=== PATIENT | female | born 1990 | race Caucasian/White ===

== ENCOUNTER → 2017-02-07 | Outpatient (REF) | payer BC ==
[~2017-02-07] MED LIST: IBUP600T26 PO; MAGN30TA2 PO; POTA-77 PO; TYLE325T5 PO; [UNRECOGNIZED DRUG - CODE] PO
== END ==
LOC: M LAB REF 16:59
PROVIDERS: ATTEND Advanced Practice Midwife
DX: Z12.4 Encounter for screening for malignant neoplasm of cervix (principal)

== ENCOUNTER → 2017-04-29 | Outpatient (REF) | payer BC | LOC: M SFHCLERA 16:03 | DX: J02.9 Acute pharyngitis, unspecified (principal) ==

== ENCOUNTER → 2018-05-17 | Outpatient (CLI) | payer BC ==
--- NOTE | 2018-05-17 14:00 | REP ---
CHEST PA/LATERAL: 05/17/2018. COMPARISON: 10/28/2008, CT chest 09/18/2006. CLINICAL HISTORY: Cough. She has a history of pectus excavatum. FINDINGS: The two views again show two sternotomy wires in the mid lower sternum. There are no other surgical findings. Degree of pectus is still seen. There is no pleural effusion or acute infiltrate. Crowding of markings in the right medial base is due to the pectus excavatum and is a normal finding in that clinical setting, not an infiltrate. It is unchanged from the study 10 years ago. There is no effusion or new parenchymal lung findings. No pleural thickening or nodularity on the frontal or lateral views. Heart is not enlarged. The aorta is normal. Airway is intact. Bony thoracic spine without compression deformity. Ribs without acute bony finding. IMPRESSION: 1. Pectus excavatum status post some surgical repair with two cerclage wires seen in the sternum in its mid lower portion. 2. Typical pattern of increased markings in the infrahilar region on the right in patients with pectus is noted in this study. No dense consolidation or pleural effusion. 3. Heart not enlarged. No vascular redistribution. Electronically Signed by Kris Ulloa MD 05/17/2018 07:08 P
== END ==
LOC: M WUC 12:06
PROVIDERS: ATTEND Physician Assistant
DX: R05 Cough (principal)

== ENCOUNTER → 2019-04-29 | Outpatient (REF) | payer BC | LOC: M LAB REF 15:52 | PROVIDERS: ATTEND Physician Assistant | DX: J02.9 Acute pharyngitis, unspecified (principal) ==

== ENCOUNTER → 2019-06-04 | Outpatient (REF) | payer BC | LOC: M SFHCWAGY 09:44 | PROVIDERS: ATTEND Advanced Practice Midwife | DX: Z12.4 Encounter for screening for malignant neoplasm of cervix (principal) ==

== ENCOUNTER → 2019-06-10 | Outpatient (CLI) | payer BC ==
--- NOTE | 2019-06-10 15:30 | REP ---
Left hip two-view : There is no fracture or dislocation. Mineralization and joint spaces are normal. There are no calcifications or foreign bodies. Impression: Negative left hip . Electronically Signed by Inderjit Hatfield MD 06/10/2019 03:21 P
== END ==
LOC: M WUC 10:26
PROVIDERS: ATTEND Physician Assistant
DX: M25.552 Pain in left hip (principal)

== ENCOUNTER → 2019-06-10 | Outpatient (REF) | payer BC ==
[2019-06-10 17:43] LABS: BLOOD UREA NITROGEN 10 MG/DL (7-18); C REACTIVE PROTEIN QUANTITATIV 5.18 MG/DL (0.00-0.30); GLOMERULAR FILTRATION RATE > 60.0 (>60)
[2019-06-10 17:58] LABS: BASO % 0.3 % (0.0-1.0); EOS # 0.1 10^3/uL (0.0-0.5); EOS % 0.9 % (0.0-3.0); HEMATOCRIT 36.9 % (36.0-47.0); HEMOGLOBIN 12.4 g/dl (12.0-15.5); LYMPH # 3.8 10^3/uL (1.5-5.0); LYMPH % 32.2 % (24.0-44.0); MEAN CORPUSCULAR HEMOGLOBIN 28.6 pg (27.0-33.0); MEAN CORPUSCULAR HGB CONC 33.6 g/dl (32.0-36.5); MONO # 0.8 10^3/uL (0.0-0.8); MONO % 6.8 % (0.0-5.0); NEUTROPHILS # 6.9 10^3/uL (1.5-8.5); NEUTROPHILS % 59.4 % (36.0-66.0); PLATELET COUNT, AUTOMATED 289 10^3/uL (150-450); RED BLOOD COUNT 4.34 10^6/uL (4.00-5.40); WHITE BLOOD COUNT 11.7 10^3/uL (4.0-10.0)
[2019-06-10 19:46] LABS: ERYTHROCYTE SEDIMENTATION RATE 49 mm/hr (0-20)
[2019-06-13 00:08] LABS: Lyme Disease IgG/IgM Antibodie <0.91 ISR (0.00-0.90); Lyme Disease IgM Ab Quantitati <0.80 index (0.00-0.79)
== END ==
LOC: M LABDRAW1 14:38
PROVIDERS: ATTEND Physician Assistant Medical
DX: M25.552 Pain in left hip (principal)

== ENCOUNTER → 2020-08-07 | Outpatient (REF) | payer BC | LOC: M SFHCWAGY 19:17 | PROVIDERS: ATTEND Advanced Practice Midwife | DX: Z12.4 Encounter for screening for malignant neoplasm of cervix (principal) ==

== ENCOUNTER → 2021-04-18 | Outpatient (REF) | payer BC ==
[2021-04-18 15:58] LABS: C REACTIVE PROTEIN QUANTITATIV 3.03 MG/DL (0.00-0.30); RHEUMATOID FACTOR QUANT < 10.0 IU/ML (<15.0); URIC ACID 4.4 MG/DL (2.6-6.0)
[2021-04-19 23:07] LABS: ANTINUCLEAR ANTIBODIES DIRECT Negative (Negative); CYCLIC CITRULLINATED PEPTIDE 5 units (0-19)
== END ==
LOC: M LAB REF 12:58
PROVIDERS: ATTEND Internal Medicine
DX: M13.80 Other specified arthritis, unspecified site (principal)

== ENCOUNTER → 2021-05-01 | Outpatient (REF) | payer BC | LOC: M LAB REF 11:33 | PROVIDERS: ATTEND Internal Medicine | DX: M13.80 Other specified arthritis, unspecified site (principal) ==

== ENCOUNTER → 2022-04-10 | Outpatient (REF) | payer BC ==
[2022-04-10 17:11] LABS: CRYSTALS, BODY FLUID NONE SEEN (NONE SEEN); SOURCE, BODY FLUID RT KNEE; SOURCE, BODY FLUID CRYSTALS RT KNEE; SYNOVIAL FLUID COLOR YELLOW (COLORLESS)
== END ==
LOC: M LAB REF 16:08
PROVIDERS: ATTEND Internal Medicine
DX: M25.561 Pain in right knee (principal); M13.161 Monoarthritis, not elsewhere classified, right knee

== ENCOUNTER → 2022-05-10 | Outpatient (CLI) | payer BC | LOC: M PLAIMG 07:29 | PROVIDERS: ATTEND Internal Medicine | DX: M94.261 Chondromalacia, right knee (principal) ==

== ENCOUNTER → 2022-07-22 | Outpatient (REF) | payer BC | LOC: M SFHCWAGY 18:01 | PROVIDERS: ATTEND Advanced Practice Midwife | DX: Z12.4 Encounter for screening for malignant neoplasm of cervix (principal); R87.610 Atypical squamous cells of undetermined significance on cytologic smear of cervix (ASC-US) ==

== ENCOUNTER → 2022-08-13 | Outpatient (REF) | payer BC | LOC: M SFHCWAGY 10:13 | PROVIDERS: ATTEND Obstetrics & Gynecology | DX: R87.810 Cervical high risk human papillomavirus (HPV) DNA test positive (principal) ==

== ENCOUNTER → 2023-07-28 | Outpatient (REF) | payer BC | LOC: M SFHCWAGY 17:46 | PROVIDERS: ATTEND Advanced Practice Midwife | DX: Z12.4 Encounter for screening for malignant neoplasm of cervix (principal) ==

== ENCOUNTER → 2024-01-28 | Outpatient (REF) | payer BC ==
[2024-01-28 18:59] LABS: LYMPHOCYTES 12 % (16-44); MONOCYTES 4 % (0-5); NEUTROPHILS 84 % (28-66); PLATELET ESTIMATE NORMAL (NORMAL)
[2024-01-28 19:00] LABS: ANISOCYTOSIS 1+
== END ==
LOC: M LAB REF 16:51
PROVIDERS: ATTEND Internal Medicine
DX: D72.829 Elevated white blood cell count, unspecified (principal)

== ENCOUNTER → 2024-03-01 | Outpatient (REF) | payer BC | LOC: M LAB REF 19:54 | PROVIDERS: ATTEND Nurse Practitioner Family | DX: R05.9 Cough, unspecified (principal) ==

== ENCOUNTER → 2024-03-01 | Outpatient (CLI) | payer BC | LOC: M WUC 15:28 | PROVIDERS: ATTEND Nurse Practitioner Family | DX: R05.9 Cough, unspecified (principal) ==

== ENCOUNTER → 2024-04-08 | Outpatient (CLI) | payer BC | LOC: M WUC 10:32 | PROVIDERS: ATTEND Student in an Organized Health Care Education/Training Program | DX: S29.011D Strain of muscle and tendon of front wall of thorax, subsequent encounter (principal) ==

== ENCOUNTER → 2024-05-27 | Outpatient (CLI) | payer BC | LOC: M RAD 12:02 | PROVIDERS: ATTEND Internal Medicine Nephrology | DX: E87.6 Hypokalemia (principal) ==

== ENCOUNTER → 2024-06-01 | Outpatient (REF) | payer BC | LOC: M LAB REF 17:13 | PROVIDERS: ATTEND Internal Medicine Nephrology | DX: E87.6 Hypokalemia (principal) ==

== ENCOUNTER → 2024-07-29 | Outpatient (CLI) | payer BC | LOC: M CARPUL 14:35 | PROVIDERS: ATTEND Nurse Practitioner Adult Health | DX: R05.9 Cough, unspecified (principal) ==

== ENCOUNTER → 2024-08-02 | Outpatient (CLI) | payer BC | LOC: M PLAIMG 13:01 | PROVIDERS: ATTEND Nurse Practitioner Adult Health | DX: R05.9 Cough, unspecified (principal) ==

== ENCOUNTER → 2024-08-16 | Outpatient (CLI) | payer BC | LOC: M WUC 15:34 | PROVIDERS: ATTEND Nurse Practitioner Family | DX: M25.562 Pain in left knee (principal); M25.462 Effusion, left knee ==

== ENCOUNTER → 2024-10-08 | Outpatient (REF) | payer BC ==
[~2024-10-08] MED LIST changes: +ACET-683 PO; +AMIL5TAB4 PO; +MAGN400T35 PO; +POTA1TAB23 PO; +PRED20TA PO; +SERT50TA29 PO; +SPIR50TA4 PO; +SPRI28TA PO
[2024-10-12 14:02] LABS: HPV APTIMA Detected (Not Detected)
== END ==
LOC: M SFHCWAGY 17:28
PROVIDERS: ATTEND Advanced Practice Midwife
DX: Z01.419 Encounter for gynecological examination (general) (routine) without abnormal findings (principal); R87.618 Other abnormal cytological findings on specimens from cervix uteri; Z12.39 Encounter for other screening for malignant neoplasm of breast; Z91.010 Allergy to peanuts; Z88.1 Allergy status to other antibiotic agents; Z79.899 Other long term (current) drug therapy

== ENCOUNTER → 2024-10-13 | Outpatient (CLI) | payer BC | LOC: M WUC 14:04 | PROVIDERS: ATTEND Internal Medicine | DX: M13.162 Monoarthritis, not elsewhere classified, left knee (principal); M25.562 Pain in left knee; M25.462 Effusion, left knee ==

== ENCOUNTER → 2024-10-14 | Outpatient (CLI) | payer BC | LOC: M WHC 13:43 | PROVIDERS: ATTEND Internal Medicine | DX: M79.605 Pain in left leg (principal); M79.89 Other specified soft tissue disorders ==

== ENCOUNTER → 2025-01-17 | Outpatient (REF) | payer BC ==
[~2025-01-17] MED LIST changes: +NAPR-837 PO
[2025-01-17 18:16] LABS: BASO # 0.0 10^3/uL (0.0-0.2); BASO % 0.3 % (0.0-1.0); EOS # 0.1 10^3/uL (0.0-0.5); EOS % 1.0 % (0.0-3.0); LYMPH # 3.9 10^3/uL (1.5-5.0); LYMPH % 30.8 % (24.0-44.0); MONO # 0.6 10^3/uL (0.0-0.8); MONO % 4.9 % (2.0-8.0); NEUTROPHILS # 7.8 10^3/uL (1.5-8.5); NEUTROPHILS % 62.3 % (36.0-66.0); PLATELET COUNT, AUTOMATED 340 10^3/uL (150-450)
[2025-01-17 18:19] LABS: ALT/SGPT 49 U/L (7.0-40); AST/SGOT 38 U/L (<34); CALCIUM LEVEL 9.1 MG/DL (8.5-10.1); CARBON DIOXIDE LEVEL 31 MMOL/L (20-31); CHLORIDE LEVEL 97 MMOL/L (98-107); CREATININE FOR GFR 0.68 MG/DL (0.55-1.30); GLOMERULAR FILTRATION RATE > 90.0 (>60); MAGNESIUM LEVEL 1.1 MG/DL (1.8-2.4); POTASSIUM SERUM 3.1 MMOL/L (3.5-5.1); SODIUM LEVEL 141 MMOL/L (136-145)
[2025-01-17 19:21] LABS: ESTIMATED AVERAGE GLUCOSE 114.0 MG/DL (60-110)
== END ==
LOC: M LAB REF 17:18
PROVIDERS: ATTEND Internal Medicine
DX: M06.4 Inflammatory polyarthropathy (principal); R73.09 Other abnormal glucose; E83.42 Hypomagnesemia; E87.6 Hypokalemia; F41.1 Generalized anxiety disorder

== ENCOUNTER 2025-01-18 21:54 | Emergency (ER) | payer BC ==
[~2025-01-18] VITALS: Ht 170.2 cm; Wt 79.5 kg
[~2025-01-18 21:54] MED LIST changes: -NAPR-837 PO
[2025-01-18 22:34] LABS: BASO # 0.1 10^3/uL (0.0-0.2); BASO % 0.6 % (0.0-1.0); EOS # 0.2 10^3/uL (0.0-0.5); EOS % 1.3 % (0.0-3.0); LYMPH # 5.6 10^3/uL (1.5-5.0); LYMPH % 38.9 % (24.0-44.0); MONO # 0.7 10^3/uL (0.0-0.8); MONO % 5.0 % (2.0-8.0); NEUTROPHILS # 7.7 10^3/uL (1.5-8.5); NEUTROPHILS % 53.3 % (36.0-66.0); PLATELET COUNT, AUTOMATED 351 10^3/uL (150-450)
[2025-01-18 23:06] LABS: CK-MB VALUE MASS 1.4 NG/ML (<3.6)
[2025-01-18 23:09] LABS: CALCIUM LEVEL 9.5 MG/DL (8.5-10.1); CARBON DIOXIDE LEVEL 29 MMOL/L (20-31); CHLORIDE LEVEL 96 MMOL/L (98-107); CPK CREATINE PHOSPHOKINASE 117 U/L (34-145); CREATININE FOR GFR 0.77 MG/DL (0.55-1.30); GLOMERULAR FILTRATION RATE > 90.0 (>60); MAGNESIUM LEVEL 1.5 MG/DL (1.8-2.4); MB/CK RELATIVE INDEX 1.19 (< OR =4); POTASSIUM SERUM 3.2 MMOL/L (3.5-5.1); SODIUM LEVEL 139 MMOL/L (136-145)
[2025-01-18 23:14] LABS: HCG, SERUM QUALITATIVE NEGATIVE (NEGATIVE)
[2025-01-19] MEDS ORDERED: ISOVUE-370 76% 100 ML VIAL As Ordered ONE (01:15)
[2025-01-19] MEDS: MAG SULF 1GM/100ML (MAG RUN) 1 GM in IV 1 EA IV ONE (01:31)
[2025-01-19] MEDS: NS (Normal Saline) 0.9% 1,000 ML IV ONE (01:31)
[2025-01-19] MEDS: KETOROLAC 30 MG/ML 1 ML VIAL IV ONE (01:31)
[2025-01-19 02:11] LABS: CK-MB VALUE MASS < 1.0 NG/ML (<3.6)
[2025-01-19 02:13] LABS: C REACTIVE PROTEIN QUANTITATIV 2.21 MG/DL (<1.0); CPK CREATINE PHOSPHOKINASE 96 U/L (34-145)
[2025-01-19] MEDS ORDERED: NAPR-837 PO (03:31)
[2025-01-19 04:00] VITALS: BP 131/72; TEMP 96.7; O2SAT 94
== END 2025-01-19 04:12 | disposition home or self-care (01) ==
LOC: M ED 21:54
DX: R07.9 Chest pain, unspecified (principal); E83.42 Hypomagnesemia; J45.909 Unspecified asthma, uncomplicated; Z88.1 Allergy status to other antibiotic agents; Z91.018 Allergy to other foods; Z79.1 Long term (current) use of non-steroidal anti-inflammatories (NSAID); Z79.52 Long term (current) use of systemic steroids; Z79.899 Other long term (current) drug therapy
CPT/HCPCS: 71275; 80048; 82550; 82553; 83735; 84484; 84703; 85025; 86140; 87486; 87581; 87633; 87798; 93005; 96365; 96366; 96375; 99284; J1885; J3475; Q9967